=== PATIENT | male | born 1975 | race Two or more races ===

== ENCOUNTER 2025-01-31 10:40 | Emergency (ER) | payer MEDICAID, SELFPAY ==
[2025-01-31 10:48] VITALS: BP 123/69; PULSE 84; RESP 18; TEMP 37.1; O2SAT 98; BMI 26.2
--- NOTE | 2025-01-31 10:54 | XR_ITS ---
Examination: CT abdomen and pelvis without contrast. Coronal 3-D reconstructions. Sagittal 2-D reconstructions. Date and time of exam:January 31, 2025 1115 hours INDICATIONS: Left lower abdominal pain with fever beginning one week ago CTDI: vol (mGy): 6.72 DLP: (mGycm): 425 Technique: Axial images of the abdomen have been obtained, 3 mm slice thickness Intravenous contrast material has not been administered. Low dose protocols were performed. One or more of the following dose reduction techniques were used; automated exposure control, adjustment of the mA and/or KV according to patient size, use of iterative reconstruction technique. Findings: No focal liver or splenic lesions Splenomegaly 14 cm No gallstones No pancreatic or adrenal mass. No renal or ureteral calculi, no hydronephrosis Small lymph nodes in the right lower mesentery Normal appendix axial image 155 No bowel obstruction No diverticulitis Prostate is not enlarged Contracted urinary bladder Moderate osteopenia, moderate disc narrowing L5-S1 IMPRESSION: Splenomegaly, 14 cm No renal or ureteral calculi, no hydronephrosis Small lymph nodes in the right lower mesentery Normal appendix No bowel obstruction or diverticulitis
--- NOTE | 2025-01-31 10:55 | PD.EDRME ---
Rapid Medical Screening Exam E Arrival date/time: 01/31/25 10:40 49-year-old male with no significant medical problems presents to the emergency department today for complaints of lower abdominal pain Chief Complaint: Abdominal Pain Vital signs: Vital Signs Temperature 98.8 F 01/31/25 10:48 Pulse Rate 84 01/31/25 10:48 Respiratory Rate 18 01/31/25 10:48 Blood Pressure 123/69 01/31/25 10:48 Pulse Oximetry (%) 98 01/31/25 10:48 Oxygen Delivery Method Room Air 01/31/25 10:48
[2025-01-31] MEDS: KETOROLAC INJ 60 MG/2 ML VIAL 30 MG IM (11:00)
[2025-01-31 11:17] LABS: Basophils # (Auto) 0.0 Thou/mm3 (0.0-0.2); Basophils % (Auto) 1 % (0-2.5); Eosinophils # (Auto) 0.0 Thou/mm3 (0.0-0.5); Eosinophils % (Auto) 1 % (0-10); Hematocrit 42.6 % (41.0-53.0); Hemoglobin 14.5 g/dL (13.5-16.0); Immature Granulocytes Auto 0.01 Thou/mm3 (0.00-0.00); Lymphocytes # (Auto) 0.7 Thou/mm3 (1.0-4.8); Lymphocytes % (Auto) 33 % (10-50); Mean Corpuscular HGB Conc 34.0 g/dl (31.0-37.0); Mean Corpuscular Hemoglobin 30.3 pg (25.0-35.0); Mean Corpuscular Volume 89 fL (80-100); Monocytes # (Auto) 0.2 Thou/mm3 (0.0-0.8); Monocytes % (Auto) 10 % (0-12); Neutrophils # (Auto) 1.1 Thou/mm3 (1.8-7.7); Neutrophils % (Auto) 55 % (37-80); Nucleated Red Blood Cell # 0.00 Thou/mm3 (0.00-0.00); Nucleated Red Blood Cell % 0 /100 WBC (0); Platelet Count 132 Thou/mm3 (140-440); RDW Standard Deviation 41.3 fL (35.1-43.9); Red Blood Count 4.79 Miln/mm3 (4.50-5.90); White Blood Count 2.0 Thou/mm3 (3.8-10.6)
[2025-01-31 11:28] LABS: Collection Type, Urine Clean Catch; Squamous Epithelial Cell,Urine 0 /hpf (0-5)
[2025-01-31 11:36] LABS: Alanine Aminotransferase 43 U/L (10-49); Albumin, Serum 4.5 gm/dL (3.5-5.0); Albumin/Globulin Ratio 1.7 (1.2-2.2); Alkaline Phosphatase 104 U/L (46-116); Amylase 65 U/L (30-118); Anion Gap 9 (7-16); Aspartate Amino Transferase 29 U/L (0-34); BUN/Creatinine Ratio 7 Ratio (12-20); Bilirubin,Total 0.5 mg/dL (0.3-1.2); Blood Urea Nitrogen 6 mg/dL (9-23); Calcium 9.4 mg/dL (8.3-10.6); Calcium (Corrected) 9.4 mg/dL (8.5-10.1); Carbon Dioxide 30.5 mMol/L (20.0-31.0); Chloride 103 mMol/L (98-107); Creatinine (Component) 0.9 mg/dL (0.6-1.3); Estimated Creatinine Clearance 91.8 mL/min (>60); Globulin 2.6 gm/dL (2.3-3.5); Glucose 114 mg/dL (74-106); Osmolality,Calculated 281 (275-295); Potassium 3.6 mMol/L (3.4-5.1); Sodium 142 mMol/L (136-145); Total Protein 7.1 gm/dL (5.7-8.2); eGFR > 60 See Note
[2025-01-31 12:09] LABS: Bilirubin,Urine Negative (Negative); Blood,Urine Negative (Negative); Clarity,Urine Clear (Clear/Hazy); Color,Urine Drk-Yellow (Lt Yel-Yel); Culture Indicated,Urine Not Indicated; Glucose, Urine Negative (Negative); Ketones,Urine Negative (Negative); Leukocyte Esterase,Urine Negative (Negative); Nitrite,Urine Negative (Negative); PH,Urine 6.5 (5.0-7.0); Protein,Urine Negative (Neg - Trace); RBC,Urine 4 /hpf (0-3); Specific Gravity,Urine 1.012 (1.001-1.035); Urobilinogen,Urine Negative mg/dL (0.0-1.0); WBC,Urine < 1 /hpf (0-5)
--- NOTE | 2025-01-31 13:58 | EDNOTE_ITS ---
<Statement entered by Sharlene Strickland MD - 02/19/25 06:08> As co-signing physician, I was present and available for consult prn. I concur with the plan and care as documented by the midlevel provider. ED Abdominal Pain RME/HPI General Chief Complaint: Abdominal Pain Stated complaint: ABD PAIN Time seen by provider: 01/31/25 13:27 Arrival date/time: 01/31/25 10:40 RME / HPI RME / HPI narrative: 49-year-old male with no significant medical problems presents to the emergency department today for complaints of lower abdominal pain, onset of symptoms for several days, severity of symptoms mild. Patient denies any diarrhea constipation dysuria frequency or other complaints. Denies any fever. Denies any other complaints no medication was taken prior to ER visit. Related Data Previous Rx's ?Medication ?Instructions ?Recorded dicyclomine 20 mg tablet 20 mg PO QID PRN abdominal p ain 01/31/25 #30 tabs polyethylene glycol 3350 17 4 g PO QDAY #238 grams gram/dose oral powder (Miralax) Allergies Allergy/AdvReac Type Severity Reaction Status Date / Time No Known Allergies Allergy Verified 12/21/23 17:44 Review of Systems Review of Systems Narrative Review of Systems: Review of system reviewed and within normal limits except mentioned in HPI ED Exam Narrative Physical exam: VITAL SIGNS: Reviewed. GENERAL APPEARANCE: Alert and interactive, follows commands, no acute distress, HEAD AND FACE: Non-traumatic. ENT: PERRL, pink conjunctivitis, eyelid no trauma, Mucous membrane moist. NECK: Supple, nontender, no nuchal rigidity. CHEST: No tenderness, no crepitus, no paradoxical movement, no retractions. LUNGS: Clear, well ventilated, symmetric, no rales, no wheezing, no ronchi, no stridor, good breath sounds bilaterally. HEART: Regular rate, regular rhythm, no murmur, no gallops. ABDOMEN: Soft, positive bowel sounds, nondistended, no guarding, nontender, no rebound, no masses, RECTAL: Deferred. GENITAL: Deferred. NEUROLOGICAL: Gross motor function intact sensory function intact, Appropriate for age. MUSCULOSKELETAL: low back nontender, full range of motion. EXTREMITIES: Nontender, full range of motion. SKIN: Color pink, dry, no rash, no lacerations, no abrasions, no contusions. LYMPHATICS: Deferred. Course Quality Measures none Orders Category Date Time Status Bedside COVID-19 Antigen Test NOW Care 01/31/25 10:54 Active Bedside Influenza A&B Antigen Test NOW Care 01/31/25 10:[address] abdomen pelvis wo con Stat Exams 01/31/25 10:54 Completed Amylase Stat Lab 01/31/25 11:08 Completed CBC Stat Lab 01/31/25 11:08 Completed Comprehensive Metabolic Panel Stat Lab 01/31/25 11:08 Completed UA, C/S IF [Urinalysis, C/S if Indicated] Stat Lab 01/31/25 11:17 Completed Ketorolac Inj [Toradol Inj] Med 01/31/25 10:54 Discontinued 30 mg IM X1 ONE Vital Signs Vital signs: Vital Signs Temperature 98.8 F 01/31/25 10:48 Pulse Rate 84 01/31/25 10:48 Respiratory Rate 18 01/31/25 10:48 Blood Pressure 123/69 01/31/25 10:48 Pulse Oximetry (%) 98 01/31/25 10:48 Oxygen Delivery Method Room Air 01/31/25 10:48 Abdominal Pain MDM MDM Narrative MDM Narrative:: 49-year-old male with no significant medical problems presents to the emergency department today for complaints of lower abdominal pain, onset of symptoms for several days, severity of symptoms mild. Patient denies any diarrhea con stipation dysuria frequency or other complaints. Denies any fever. Denies any other complaints no medication was taken prior to ER visit. Laboratory workup all came back unremarkable except for neutropenia of 2.0. Patient CT scan of the abdomen and pelvis showed splenomegaly otherwise unremarkable. Patient was given a copy of her CT scan. Patient was advised to follow-up closely with PCP and for referral to GI specialist regarding his neck pain and splenomegaly. I did not find any source of the problem at this time. She can be managed outpatient for further evaluation. Patient data External records reviewed:: None Clinical information provided by:: patient Social determinants that could affect healthcare access:: none Patient has the following chronic illnesses:: None How is presenting disease/condition affected by chronic disease/condition?: no chronic disease Evaluation data The following diagnostics were reviewed and interpreted by me:: lab results and radiology exam(s) Lab and/or radiology exams considered but not ordered:: None Interpretation Summary: None see results MDM Medications / Prescriptions Medications or Prescriptions considered but not ordered:: none Medication administrations:: Medication Administration History Discontinued Medications Ketorolac Tromethamine (Ketorolac Inj 60 Mg/2 Ml Vial) 30 mg IM X1 ONE Stop: 01/31/25 10:55 Last Admin: 01/31/25 11:00 Dose: 30 mg Documented By: KURT Toradol Consultations Consultation(s) initiated? (list below): No Diagnosis Differential diagnosis abdominal pain: abdominal pain and constipation Most likely diagnosis given after review of the tests above:: Abdominal pain, neutropenic splenomegaly Admission Indicated Admission indicated?: not indicated Explain why admission is indicated or not indicated:: Stable Admission Request Was there a request for admission?: No Disposition Plan Disposition Plan: Discharge Discharge Attestation Discharge Attestation: The patient was given an opportunity to ask questions and understood the discharge instructions. Discharge instructions specifically effects, indica tions for sooner follow up or return to the emergency department, and the expected course of current diagnosis. Patient condition: Stable Discharge Plan Plan Patient Disposition: HOME (Self Care) Discharge Disposition comment: Stable Prescriptions/Referrals Prescriptions/Med Rec: New polyethylene glycol 3350 [Miralax] 17 gram/dose powder 4 g PO QDAY Qty: 238 0RF dicyclomine 20 mg tablet 20 mg PO QID PRN (Reason: abdominal pain) Qty: 30 0RF Referrals: Paul Hurst MD [Primary Care Provider, Family Practice] - In 1 week Problem List Clinical Impression: Abdominal pain, Neutropenic splenomegaly Patient/Caregiver Discharge Instructions Discharge Activity: activity as tolerated Education Materials: Abdominal Pain Additional Instructions: Thank you for the opportunity for serving you today. You are stable for discharged . You are advised to: Follow-up with your PCP in 1 to 2 days Return to ED for worsening of symptoms Increase oral fluids Take medication as prescribed Ask your PCP to refer you to a GI specialist regarding your neutropenic splenomegaly. Print Language: Serbian Stand Alone Forms: [facility] Award Info., Patient Portal Info Letter PA/GERARDO Supervising Physician ZEV/GERARDO Supervising Physician: MD Marco A
[2025-01-31 14:05] VITALS: BP 125/85; PULSE 84; RESP 18; TEMP 36.6; O2SAT 99
== END 2025-01-31 14:06 | disposition home or self-care (01) ==
PROVIDERS: Emergency Provider Nurse Practitioner Primary Care; PCP Family Medicine
DX: D73.81 Neutropenic splenomegaly (principal)
CPT/HCPCS: 36415; 74176; 80053; 81001; 82150; 85025; 87400; 87811; 96372; 99284; J1885

== ENCOUNTER 2025-02-01 07:15 | Emergency (ER) | payer MEDICAID, SELFPAY ==
[2025-02-01 07:26] VITALS: BP 127/76; PULSE 75; RESP 17; TEMP 36.8; O2SAT 98
[2025-02-01] MEDS: FAMOTIDINE 20 MG TABLET PO (07:53)
[2025-02-01] MEDS: DEXAMETHASONE SOD PHOS INJ 10 MG/ML VIAL PO (07:53)
[2025-02-01 08:29] LABS: Basophils # (Auto) 0.0 Thou/mm3 (0.0-0.2); Basophils % (Auto) 1 % (0-2.5); Eosinophils # (Auto) 0.0 Thou/mm3 (0.0-0.5); Eosinophils % (Auto) 1 % (0-10); Hematocrit 42.4 % (41.0-53.0); Hemoglobin 14.4 g/dL (13.5-16.0); Immature Granulocytes Auto 0.01 Thou/mm3 (0.00-0.00); Lymphocytes # (Auto) 0.8 Thou/mm3 (1.0-4.8); Lymphocytes % (Auto) 38 % (10-50); Mean Corpuscular HGB Conc 34.0 g/dl (31.0-37.0); Mean Corpuscular Hemoglobin 30.1 pg (25.0-35.0); Mean Corpuscular Volume 89 fL (80-100); Monocytes # (Auto) 0.2 Thou/mm3 (0.0-0.8); Monocytes % (Auto) 10 % (0-12); Neutrophils # (Auto) 1.1 Thou/mm3 (1.8-7.7); Neutrophils % (Auto) 51 % (37-80); Nucleated Red Blood Cell # 0.00 Thou/mm3 (0.00-0.00); Nucleated Red Blood Cell % 0 /100 WBC (0); Platelet Count 137 Thou/mm3 (140-440); RDW Standard Deviation 40.5 fL (35.1-43.9); Red Blood Count 4.79 Miln/mm3 (4.50-5.90); White Blood Count 2.2 Thou/mm3 (3.8-10.6)
--- NOTE | 2025-02-01 09:25 | EDNOTE_ITS ---
ED Allergic Reaction RME/HPI General Chief complaint: Allergic Reaction Stated complaint: RASH ON BODY Time Seen by Provider: 02/01/25 07:25 Arrival date/time: 02/01/25 07:15 49-year-old male presents emergency department today stating was evaluated yesterday in the emergency department was given medication for his abdominal pain which he believes given allergic reaction today Limitations: no limitations Related Data Previous Rx's ?Medication ?Instructions ?Recorded dicyclomine 20 mg tablet 20 mg PO QID PRN abdominal p ain 01/31/25 #30 tabs polyethylene glycol 3350 17 4 g PO QDAY #238 grams gram/dose oral powder (Miralax) diphenhydramine HCl 25 mg capsule 25 mg PO Q8H PRN all ergic symptoms 02/01/25 (Benadryl) #30 caps famotidine 20 mg tablet (Pepcid) 20 mg PO QDAY PRN criss n #10 tabs 02/01/25 Allergies Allergy/AdvReac Type Severity Reaction Status Date / Time No Known Allergies Allergy Verified 12/21/23 17:44 Review of Systems Review of Systems Systems Reviewed: All systems reviewed, normal except as documented Constitutional Constitutional: Reports system reviewed and no additional complaints, except as documented, Denies fever(s) and Denies headache(s) Eyes Eyes: Reports system reviewed and no additional complaints, except as documented and Denies blurry vision ENT Ears, Nose, Mouth, and Throat: Reports system reviewed and no additional complaints, except as documented, Denies headache(s), Denies nasal congestion and Denies nasal discharge Cardiovascular Cardiovascular: Reports system reviewed and no additional complaints, except as documented, Denies chest pain and Denies dyspnea Respiratory Respiratory: Reports system reviewed and no additional complaints, except as documented, Denies chest congestion, Denies cough and Denies dyspnea Gastrointestinal Gastrointestinal: Reports system reviewed and no additional complaints, except as documented and Denies abdominal pain Integumentary/Breasts Skin/Breast: Reports system reviewed and no additional complaints, except as documented, Reports pruritus and Reports rash Neurologic Neurologic: Reports system reviewed and no additional complaints, except as documented, Reports as per HPI and Denies headache(s) Past Medical History Past Medical History CARDIAC: Negative Congestive Heart Failure RESPIRATORY: Negative Chronic Obstructive Pulmonary Disease (COPD) GENITOURINARY: Negative Renal Disease ENDOCRINE: Negative Diabetes Mellitus Type 1 or Diabetes Mellitus Type 2 Social History SMOKING STATUS: Never smoker ED Exam General Limitations: Present no limitations General appearance: Present alert and in no apparent distress Head Head exam: Present atraumatic, normocephalic and normal inspection Eye Eye exam: Present normal appearance, PERRL and EOMI; Absent conjunctival injection ENT ENT exam: Present normal exam, normal oropharynx and mucous membranes moist Neck Neck exam: Present normal inspection, full ROM and trachea midline Chest Chest inspection: Present normal inspection and symmetric chest wall rise Respiratory Respiratory exam: Present normal lung sounds bilaterally; Absent respiratory distress Cardiovascular Cardiovascular exam: Present regular rate, normal rhythm and normal heart sounds Abdominal Exam Abdominal exam: Present soft and normal bowel sounds; Absent distention, tenderness, guarding, rebound or rigidity Extremities Exam Extremities exam: Present normal inspection and full ROM Back Exam Back exam: Present normal inspection and full ROM Neurological Exam Neurological exam: Present alert, oriented X3 and CN II-XII intact Psychiatric Psychiatric exam: Present normal affect and normal mood Skin Skin exam: Present warm and rash Course Quality Measures none Orders Category Date Time Status CBC Stat Lab 02/01/25 07:40 Completed Dexamethasone Inj [Decadron Inj] Med 02/01/25 07:39 Discontinued 10 mg PO X1 ONE DiphenhydrAMINE [Benadryl] Med 02/01/25 07:39 Discontinued 25 mg PO X1 ONE Famotidine [Pepcid] Med 02/01/25 07:39 Discontinued 20 mg PO X1 ONE Vital Signs Vital signs: Vital Signs Temperature 98.3 F 02/01/25 07:26 Pulse Rate 75 02/01/25 07:26 Respiratory Rate 17 02/01/25 07:26 Blood Pressure 127/76 02/01/25 07:26 Pulse Oximetry (%) 98 02/01/25 07:26 Oxygen Delivery Method Room Air 02/01/25 07:26 O2 saturation 98% room air within normal limits Allergic Reaction MDM Narrative MDM Narrative:: 49-year-old male presents emergency department today stating was evaluated yesterday in the emergency department was given medication for his abdominal pain which he believes given allergic reaction today On exam patient has evidence of anaphylaxis Patient was medicated here I did repeat the patient CBC has a patient was neutropenic yesterday CBC/WBC mildly higher not by much Explained to the patient needs to follow-up with his PCP for further evaluation of this neutropenia and I also did give the patient copy of his CT report to bring to his primary care doctor for evaluation and specialist referral I explained to the patient should symptoms persist or worsen or any other concerns return immediately for further evaluation Patient data External records reviewed:: [facility] previous records Clinical information provided by:: patient Social determinants that could affect healthcare access:: none Patient has the following chronic illnesses:: See history How is presenting disease/condition affected by chronic disease/condition?: uneffected by Evaluation data The following diagnostics were reviewed and interpreted by me:: lab results Lab and/or radiology exams considered but not ordered:: Ordered Interpretation Summary: Reviewed Medications / Prescriptions Medications or Prescriptions considered but not ordered:: Given Medication administrations:: Medication Administration History Discontinued Medications Dexamethasone Sodium Phosphate (Dexamethasone Sod Phos Inj 10 Mg/Ml Vial) 10 mg PO X1 ONE Stop: 02/01/25 07:40 Last Admin: 02/01/25 07:53 Dose: 10 mg Documented By: NOÉ Diphenhydramine HCl (Diphenhydramine 25 Mg Capsule) 25 mg PO X1 ONE Stop: 02/01/25 07:40 Last Admin: 02/01/25 07:53 Dose: 25 mg Documented By: NOÉ Famotidine (Famotidine 20 Mg Tablet) 20 mg PO X1 ONE Stop: 02/01/25 07:40 Last Admin: 02/01/25 07:53 Dose: 20 mg Documented By: VG Given Consultations Consultation(s) initiated? (list below): No Diagnosis Differential Diagnosis allergic reaction: anaphylaxis, allergic reaction and contact dermatitis Most likely diagnosis given after review of the tests above:: Allergic reaction Admission Indicated Admission indicated?: not indicated Admission Request Was there a request for admission?: No Disposition Plan Disposition Plan: Discharge Discharge Attestation Discharge Attestation: The patient and all family members were given an opportunity to ask questions and understood the discharge instructions. Discharge instructions specifically effects, indications for sooner follow up or return to the emergency department, and the expected course of current diagnosis. Patient condition: Stable Discharge Plan Plan Patient Disposition: HOME (Self Care) Discharge Disposition comment: Stable Prescriptions/Referrals Prescriptions/Med Rec: New famotidine [Pepcid] 20 mg tablet 20 mg PO QDAY PRN (Reason: pain ) Qty: 10 0RF diphenhydramine HCl [Benadryl] 25 mg capsule 25 mg PO Q8H PRN (Reason: allergic symptoms) Qty: 30 0RF No Action polyethylene glycol 3350 [Miralax] 17 gram/dose powder 4 g PO QDAY Qty: 238 0RF dicyclomine 20 mg tablet 20 mg PO QID PRN (Reason: abdominal pain) Qty: 30 0RF Referrals: No Primary/Family,Physician [Primary Care Provider] - 02/02/25 Problem List Clinical Impression: Rash, Neutropenia Patient/Caregiver Discharge Instructions Education Materials: Neutropenia Additional Instructions: Please bring copy of your CT report as well as a copy of your lab work to your PCP for further evaluation and possible specialist evaluation For emergent concerns return immediately Print Language: Kuwaiti Stand Alone Forms: [facility] Award Info., Work/School Release, Patient Portal Info Letter PA/FURNACE [employer] OPERATOR Supervising Physician PA/FURNACE [employer]ANT OPERATOR Supervising Physician: Dr. castro
== END 2025-02-01 09:54 | disposition home or self-care (01) ==
PROVIDERS: Nurse Practitioner Primary Care; Emergency Provider Family Medicine
DX: D70.9 Neutropenia, unspecified (principal); R21 Rash and other nonspecific skin eruption
CPT/HCPCS: 36415; 85025; 99283; J1100; A9270

== ENCOUNTER 2025-02-07 14:29 | Emergency (ER) | payer MEDICAID, SELFPAY ==
[2025-02-07 14:49] VITALS: BP 114/72; PULSE 81; RESP 20; TEMP 36.7; O2SAT 98
--- NOTE | 2025-02-07 15:09 | PD.EDRME ---
Rapid Medical Screening Exam RME Arrival date/time: 02/07/25 14:29 49-year-old male was seen last week for same symptoms returns with persistent vomiting and epigastric abdominal pain that began this morning Chief Complaint: Abdominal Pain Time Seen by Provider: 02/07/25 14:34 Vital signs: Vital Signs Temperature 98.1 F 02/07/25 14:49 Pulse Rate 81 02/07/25 14:49 Respiratory Rate 20 02/07/25 14:49 Blood Pressure 114/72 02/07/25 14:49 Pulse Oximetry (%) 98 02/07/25 14:49 Oxygen Delivery Method Room Air 02/07/25 14:49
[2025-02-07 15:46] LABS: Collection Type, Urine Clean Catch; Squamous Epithelial Cell,Urine 0 /hpf (0-5); WBC,Urine 0 /hpf (0-5)
[2025-02-07 15:53] LABS: Basophils # (Auto) 0.0 Thou/mm3 (0.0-0.2); Basophils % (Auto) 0 % (0-2.5); Eosinophils # (Auto) 0.0 Thou/mm3 (0.0-0.5); Eosinophils % (Auto) 0 % (0-10); Hematocrit 41.3 % (41.0-53.0); Hemoglobin 14.1 g/dL (13.5-16.0); Immature Granulocytes Auto 0.13 Thou/mm3 (0.00-0.00); Lymphocytes # (Auto) 1.3 Thou/mm3 (1.0-4.8); Lymphocytes % (Auto) 13 % (10-50); Mean Corpuscular HGB Conc 34.1 g/dl (31.0-37.0); Mean Corpuscular Hemoglobin 29.9 pg (25.0-35.0); Mean Corpuscular Volume 88 fL (80-100); Monocytes # (Auto) 0.6 Thou/mm3 (0.0-0.8); Monocytes % (Auto) 6 % (0-12); Neutrophils # (Auto) 8.1 Thou/mm3 (1.8-7.7); Neutrophils % (Auto) 80 % (37-80); Nucleated Red Blood Cell # 0.00 Thou/mm3 (0.00-0.00); Nucleated Red Blood Cell % 0 /100 WBC (0); Platelet Count 309 Thou/mm3 (140-440); RDW Standard Deviation 39.8 fL (35.1-43.9); Red Blood Count 4.71 Miln/mm3 (4.50-5.90); White Blood Count 10.2 Thou/mm3 (3.8-10.6)
[2025-02-07 16:01] LABS: Amorphous Crystals,Urine Present (Absent); Bilirubin,Urine Negative (Negative); Blood,Urine Negative (Negative); Color,Urine Yellow (Lt Yel-Yel); Glucose, Urine Negative (Negative); Ketones,Urine 1+ (Negative); Leukocyte Esterase,Urine Negative (Negative); Nitrite,Urine Negative (Negative); PH,Urine 8.5 (5.0-7.0); Protein,Urine Trace (Neg - Trace); RBC,Urine 1 /hpf (0-3); Specific Gravity,Urine 1.024 (1.001-1.035); Urobilinogen,Urine Negative mg/dL (0.0-1.0)
[2025-02-07] MEDS: PROMETHAZINE INJ 25 MG/ML VIAL 12.5 MG IM (16:02)
[2025-02-07 16:12] LABS: Alanine Aminotransferase 25 U/L (10-49); Albumin, Serum 4.5 gm/dL (3.5-5.0); Albumin/Globulin Ratio 1.6 (1.2-2.2); Alkaline Phosphatase 93 U/L (46-116); Anion Gap 11 (7-16); Aspartate Amino Transferase < 10 U/L (0-34); BUN/Creatinine Ratio 18 Ratio (12-20); Bilirubin,Total 0.8 mg/dL (0.3-1.2); Blood Urea Nitrogen 14 mg/dL (9-23); Calcium 9.1 mg/dL (8.3-10.6); Calcium (Corrected) 9.1 mg/dL (8.5-10.1); Carbon Dioxide 25.1 mMol/L (20.0-31.0); Chloride 101 mMol/L (98-107); Creatinine (Component) 0.8 mg/dL (0.6-1.3); Estimated Creatinine Clearance 104.4 mL/min (>60); Globulin 2.8 gm/dL (2.3-3.5); Glucose 118 mg/dL (74-106); Osmolality,Calculated 275 (275-295); Potassium 3.7 mMol/L (3.4-5.1); Sodium 137 mMol/L (136-145); Total Protein 7.3 gm/dL (5.7-8.2); eGFR > 60 See Note
[2025-02-07 16:29] LABS: Clarity,Urine Cloudy (Clear/Hazy)
[2025-02-07] MEDS: SODIUM CHLORIDE 0.9% 1000 ML 1,000 ML 999 ML IV (18:23)
--- NOTE | 2025-02-07 19:26 | XR_ITS ---
Examination: Abdomen sonogram, Limited Date and time of exam: February 07, 20252011 hrs. Indications: Epigastric pain beginning 2 weeks ago Technique: Real-time frye scale transabdominal sonographic images of the upper abdomen obtained. Findings: Normal gallbladder Normal common bile duct 0.2 cm Pancreatic head 2.7 cm Liver 13.3 cm fatty infiltration no focal liver lesions Normal hepatopedal portal venous flow Patent IVC Impression: Normal gallbladder Normal common bile duct
--- NOTE | 2025-02-07 21:26 | EDNOTE_ITS ---
ED Abdominal Pain RME/HPI General Chief Complaint: Abdominal Pain Stated complaint: SEVERE UPPER ABD PAIN X 2 WKS, NAUSEA Time seen by provider: 02/07/25 14:34 Arrival date/time: 02/07/25 14:29 RME / HPI RME / HPI narrative: 49-year-old male was seen last week for same symptoms returns with persistent vomiting and epigastric abdominal pain that began this morning. Severity of symptoms moderate. Patient also complaining that he cannot take anything down due to vomiting. Patient was seen here last week for the same complaints, and was sent home on medications. Patient has been taking the medication with no relief. Patient was seen by PCP today and still waiting for H. pylori test. Patient went to [facility] yesterday they did a CT scan and do all the tests and nothing can be found wrong according to the patient. Patient continues to have symptoms. Related Data Previous Rx's ?Medication ?Instructions ?Recorded dicyclomine 20 mg tablet 20 mg PO QID PRN abdominal p ain 01/31/25 #30 tabs polyethylene glycol 3350 17 4 g PO QDAY #238 grams gram/dose oral powder (Miralax) diphenhydramine HCl 25 mg capsule 25 mg PO Q8H PRN all ergic symptoms 02/01/25 (Benadryl) #30 caps famotidine 20 mg tablet (Pepcid) 20 mg PO QDAY PRN criss n #10 tabs 02/01/25 metoclopramide HCl 10 mg tablet 10 mg PO Q6H PRN nause a and 02/07/25 (Reglan) vomiting #30 tabs sucralfate 100 mg/mL oral 10 ml PO BID #300 mL 5 suspension (Carafate) Allergies Allergy/AdvReac Type Severity Reaction Status Date / Time No Known Allergies Allergy Verified 02/07/25 14:32 Review of Systems Review of Systems Narrative Review of Systems: Review of system reviewed and within normal limits except mentioned in HPI ED Exam Narrative Physical exam: VITAL SIGNS: Reviewed. GENERAL APPEARANCE: Alert and interactive, follows commands, no acute distress, HEAD AND FACE: Non-traumatic. ENT: PERRL, pink conjunctivitis, eyelid no trauma, Mucous membrane moist. NECK: Supple, nontender, no nuchal rigidity. CHEST: No tenderness, no crepitus, no paradoxical movement, no retractions. LUNGS: Clear, well ventilated, symmetric, no rales, no wheezing, no ronchi, no stridor, good breath sounds bilaterally. HEART: Regular rate, regular rhythm, no murmur, no gallops. ABDOMEN: Soft, positive bowel sounds, nondistended, no guarding, epigastric tenderness,, no rebound, no masses, RECTAL: Deferred. GENITAL: Deferred. NEUROLOGICAL: Gross motor function intact sensory function intact, Appropriate for age. MUSCULOSKELETAL: low back nontender, full range of motion. EXTREMITIES: Nontender, full range of motion. SKIN: Color pink, dry, no rash, no lacerations, no abrasions, no contusions. LYMPHATICS: Deferred. Course Quality Measures none Orders Category Date Time Status US gall bladder Stat Exams 02/07/25 19:26 Completed CBC Stat Lab 02/07/25 15:24 Completed CMP [Comprehensive Metabolic Panel] Stat Lab 02/07/25 15:24 Completed UA [Urinalysis] Stat Lab 02/07/25 15:35 Completed Ketorolac Inj [Toradol Inj] Med 02/07/25 19:27 Discontinued 30 mg IVP X1 ONE Promethazine Inj [Phenergan Inj] Med 02/07/25 15:04 Discontinued 12.5 mg IM X1 ONE Ringers Lactated 1000 ml [Lactated Ringers] 1,000 ml Med 02/07/25 21:25 Active IV 999 mls/hr Sodium Chloride 0.9% 1000 ml [Ns] 1,000 ml Med 02/07/25 15:06 Discontinued IV 999 mls/hr Vital Signs Vital signs: Vital Signs Temperature 98.1 F 02/07/25 14:49 Pulse Rate 81 02/07/25 14:49 Respiratory Rate 20 02/07/25 14:49 Blood Pressure 114/72 02/07/25 14:49 Pulse Oximetry (%) 98 02/07/25 14:49 Oxygen Delivery Method Room Air 02/07/25 14:49 Abdominal Pain MDM MDM Narrative MDM Narrative:: 49-year-old male was seen last week for same symptoms returns with persistent vomiting and epigastric abdominal pain that began this morning. Severity of symptoms moderate. Patient also complaining that he cannot take anything down due to vomiting. Patient was seen here last week for the same complaints, and was sent home on medications. Patient has been taking the medication with no relief. Patient was seen by PCP today and still waiting for H. pylori test. Patient went to [facility] yesterday they did a CT scan and do all the tests and nothing can be found wrong according to the patient. Patient continues to have symptoms. Ultrasound of the upper abdomen and gallbladder, came back unremarkable. Results discussed with the patient. Patient CBC CMP urinalysis also came back normal. Patient was advised to really see PCP and for referral to GI specialist for outpatient endoscopy. I added Reglan and Carafate. Patient still taking omeprazole. Patient received 2 L of IV fluids with significant improvement of symptoms. Stable for discharge home Patient data External records reviewed:: None Clinical information provided by:: patient and family Social determinants that could affect healthcare access:: none Patient has the following chronic illnesses:: None How is presenting disease/condition affected by chronic disease/condition?: no chronic disease Evaluation data The following diagnostics were reviewed and interpreted by me:: lab results, radiology exam(s) and EKG tracing(s) Lab and/or radiology exams considered but not ordered:: None Interpretation Summary: See results MDM Medications / Prescriptions Medications or Prescriptions considered but not ordered:: None Medication administrations:: Medication Administration History Lactated Ringer's (Lactated Ringers) 1,000 mls @ 999 mls/hr IV .Q1H1M ONE Stop: 02/07/25 22:25 Last Admin: 02/07/25 21:57 Dose: 999 mls/hr Discontinued Medications Sodium Chloride (Ns) 1,000 mls @ 999 mls/hr IV .Q1H1M ONE Stop: 02/07/25 16:06 Last Infusion: 02/07/25 21:52 Dose: Infused Documented By: Admin: 02/07/25 18:23 Dose: 999 mls/hr Documented By: OA Ketorolac Tromethamine (Ketorolac Inj 30 Mg/Ml Vial) 30 mg IVP X1 ONE Stop: 02/07/25 19:28 Last Admin: 02/07/25 21:53 Dose: 30 mg Promethazine HCl (Promethazine Inj 25 Mg/Ml Vial) 12.5 mg IM X1 ONE; Protocol Stop: 02/07/25 15:05 Last Admin: 02/07/25 16:02 Dose: 12.5 mg Documented By: OA IV fluids, Toradol, Phenergan Consultations Consultation(s) initiated? (list below): No Diagnosis Differential diagnosis abdominal pain: abdominal pain, gastroenteritis and other (Gastritis) Most likely diagnosis given after review of the tests above:: Abdominal pain, gastritis Admission Indicated Admission indicated?: not indicated Admission Request Was there a request for admission?: No Disposition Plan Disposition Plan: Discharge Discharge Attestation Discharge Attestation: The patient and all family members were given an opportunity to ask questions and understood the discharge instructions. Discharge instructions specifically effects, indications for sooner follow up or return to the emergency department, and the expected course of current diagnosis. Patient condition: Stable Discharge Plan Plan Patient Disposition: HOME (Self Care) Discharge Disposition comment: Stable Prescriptions/Referrals Prescriptions/Med Rec: New metoclopramide HCl [Reglan] 10 mg tablet 10 mg PO Q6H PRN (Reason: nausea and vomiting) Qty: 30 0RF sucralfate [Carafate] 100 mg/mL suspension 10 ml PO BID Qty: 300 0RF No Action polyethylene glycol 3350 [Miralax] 17 gram/dose powder 4 g PO QDAY Qty: 238 0RF dicyclomine 20 mg tablet 20 mg PO QID PRN (Reason: abdominal pain) Qty: 30 0RF famotidine [Pepcid] 20 mg tablet 20 mg PO QDAY PRN (Reason: pain ) Qty: 10 0RF diphenhydramine HCl [Benadryl] 25 mg capsule 25 mg PO Q8H PRN (Reason: allergic symptoms) Qty: 30 0RF Referrals: No Primary/Family,Physician [Primary Care Provider] - In 1 week Problem List Clinical Impression: Abdominal pain, Gastritis Patient/Caregiver Discharge Instructions Discharge Activity: activity as tolerated Education Materials: ED Gastritis (Adult) Additional Instructions: Thank you for the opportunity for serving you today. You are stable for discharged . You are advised to: Follow-up with your PCP in 1 to 2 days Return to ED for worsening of symptoms Increase oral fluids Take medication as prescribed As your PCP to refer you to a GI specialist for outpatient endoscopy Print Language: Latvian Stand Alone Forms: Alba Award Info., Patient Portal Info Letter ZEV/GERARDO Supervising Physician TULIO Supervising Physician: MD Serafin
[2025-02-07] MEDS: KETOROLAC INJ 30 MG/ML VIAL IVP (21:53)
[2025-02-07] MEDS: RINGERS LACTATED 1000 ML 1,000 ML 999 ML IV (21:57)
[2025-02-07 22:36] VITALS: BP 135/64; PULSE 78; RESP 18; TEMP 36.6; O2SAT 99
== END 2025-02-07 22:37 | disposition home or self-care (01) ==
PROVIDERS: Physician Assistant; Emergency Provider Emergency Medicine
DX: K29.70 Gastritis, unspecified, without bleeding (principal)
CPT/HCPCS: 36415; 76705; 80053; 81001; 85025; 96372; 96374; 99283; J1885; J2550; J7030; J7120